=== PATIENT | male | born 1995 | race Two or more races ===

== ENCOUNTER 2018-01-21 01:38 | Emergency (ER) | payer SELFPAY ==
[2018-01-21 01:51] VITALS: BMI 25.8
[2018-01-21 01:55] VITALS: TEMP 98.9
[2018-01-21] MEDS ORDERED: Sodium Chloride 0.9% 1,000 ML IV STA (02:17)
--- NOTE | 2018-01-21 02:25 | ED PDOC ---
HPI: Psych/Substance Abuse Time Seen by Provider: 01/21/18 01:47 Chief Complaint (Nursing): Alcohol Ingestion ED Caveat: Intoxicated History Per: Other (friends) History/Exam Limitations: intoxication Onset/Duration Of Symptoms: Hrs Current Symptoms Are (Timing): Still Present Modifying Factor(s): Alcohol Additional History Per: Friend Additional Complaint(s): 22 y/o male who was brought in by EMS along with his friends Carlos and Marie. Per pt's friends, they met the patient at a bar at 23:15 yesterday, and state that the patient was already visibly intoxicated. The patient was escorted out of the bar as he had an unsteady gait. They went to get pizza, patient began vomiting. When they were waiting for their Uber, police came by and saw that the patient had an unsteady gait and called EMS. Patient voices no complaints. Past Medical History Vital Signs: Last Vital Signs Temp 98.9 F 01/21/18 01:52 Pulse 78 01/21/18 01:52 Resp 18 01/21/18 01:52 BP 115/75 01/21/18 01:52 Pulse Ox 98 01/21/18 01:52 - Medical History PMH: Depression - Surgical History Surgical History: No Surg Hx - Family History Family History: States: No Known Family Hx - Allergies Allergies/Adverse Reactions: Allergies Allergy/AdvReac Type Severity Reaction Status Date / Time nut - unspecified Allergy RASH Verified 01/21/18 01:51 Review of Systems ROS Statement: Except As Marked, All Systems Reviewed And Found Negative Physical Exam - Reviewed Nursing Documentation Reviewed: Yes Vital Signs Reviewed: Yes - Physical Exam Appears: Positive for: Well, No Acute Distress. Negative for: Non-toxic ( alcohol on breath) Head Exam: Positive for: ATRAUMATIC, NORMAL INSPECTION, NORMOCEPHALIC Skin: Positive for: Normal Color, Warm, DRY Eye Exam: Positive for: Normal appearance, EOMI, PERRL. Negative for: Periorbital swelling, Periorbital tenderness ENT: Positive for: Normal ENT Inspection Neck: Positive for: Normal, Painless ROM Cardiovascular/Chest: Positive for: Regular Rate, Rhythm Respiratory: Positive for: CNT, Normal Breath Sounds Gastrointestinal/Abdominal: Positive for: Normal Exam, Soft. Negative for: Tenderness Back: Positive for: Normal Inspection Extremity: Positive for: Normal ROM Neurologic/Psych: Positive for: Alert, Other (speech slurred). Negative for: Aphasia - Laboratory Results Result Diagrams: 01/21/18 02:30 01/21/18 02:30 - ECG O2 Sat by Pulse Oximetry: 98 - Progress ED Course And Treament: 0547 On re-evaluation, pt. AOx3. Gait steady unassisted. Offers no complaints. Will be dc'd under friends' care. Medical Decision Making Medical Decision Making: Impression: Intoxication Plan: - Labs - IVF - Reassessment Scribe Attestation Documented by Liv Crook acting as a scribe for AGUSTINA Kennedy MD Scribe Attestation All medical record entries made by the Scribe were at my direction and personally dictated by me. I have reviewed the chart and agree that the record accurately reflects my personal performance of the history, physical exam, medical decision making, and the department course for this patient. I have also personally directed, reviewed, and agree with the discharge instructions and disposition. Disposition - Clinical Impression Clinical Impression: Alcohol intoxication - Patient ED Disposition Is Patient to be Admitted: No - Disposition Disposition: Routine/Home Disposition Time: 05:50 Condition: IMPROVED Instructions: Alcohol Use - When Is Drinking a Problem? Forms: [employer] (app) (Surinamese) Print Language: PU[place] RICAN
[2018-01-21 02:38] LABS: BASO # 0.1 K/uL (0.0-0.2); BASO % 0.8 % (0.0-2.0); EOS # 0.2 K/uL (0.0-0.7); EOS % 1.9 % (0.0-4.0); HEMOGLOBIN 14.1 g/dL (12.0-16.0); LYMPH # 2.4 K/uL (1.0-4.3); LYMPH % 20.5 % (20.0-40.0); MEAN CELL VOLUME 89.5 fl (81.0-99.0); MEAN CORPUSCULAR HEMOGLOBIN 29.9 pg (27.0-31.0); MEAN CORPUSCULAR HGB CONC 33.5 g/dL (33.0-37.0); MEAN PLATELET VOLUME 7.6 fl (7.2-11.7); MONO # 0.6 K/uL (0.0-0.8); MONO % 4.8 % (0.0-10.0); NEUT # 8.4 K/uL (1.8-7.0); RBC 4.71 Mil/uL (3.80-5.20); RED CELL DISTRIBUTION WIDTH 14.6 % (11.5-14.5); WHITE BLOOD COUNT 11.7 K/uL (4.8-10.8)
[2018-01-21 03:13] LABS: ALB/GLOB RATIO 1.2 (1.0-2.1); ALBUMIN 4.4 g/dL (3.5-5.0); ALT/SGPT 37 U/L (21-72); AST/SGOT 60 U/L (17-59); BLOOD UREA NITROGEN 13 mg/dl (9-20); CALCIUM 9.4 mg/dL (8.4-10.2); GFR AFRICAN-AMERICAN > 60; GFR NON-AFRICAN AMERICAN > 60
[2018-01-21 06:05] VITALS: BP 116/56; PULSE 90; RESP 16; O2SAT 100
== END 2018-01-21 06:26 | disposition home or self-care (01) ==
LOC: H.ER 01:38 → EDSEX 01:38 → H.ER 06:26
DX: F10.129 Alcohol abuse with intoxication, unspecified (principal); F32.9 Major depressive disorder, single episode, unspecified
CPT/HCPCS: 80053; 82948; 85025; 99283; G0480; J7040